=== PATIENT | male | born 1940 | race African-American/Black ===

== ENCOUNTER 2020-12-27 14:51 | Outpatient (CLI) | payer MEDICARE, SELFPAY ==
--- NOTE | ~2020-12-27 | CT_ITS ---
EXAMINATION: CT IAC/mastoids BI wo con DATE: 12/27/2020 15:37 INDICATION: Mixed conductive and sensorineural hearing loss, right ear. TECHNIQUE: Computed tomography (CT) of the temporal bones was performed without intravenous contrast. Automated exposure control and iterative reconstruction technique were employed. The dose-length pro duct was 257.74 mGy-cm. COMPARISON: None FINDINGS: There are likely changes of ocular lens replacement surgeries. RIGHT TEMPORAL BONE: The internal auditory canal, cochlea, vestibule, semicircular canals, vestibular aqueduct, carotid ca nal, jugular bulb, and facial nerve course are normal. There are changes of mastoidectomy. The ossicl es are absent. Soft tissue lines the tympanic cavity and postmastoidectomy space. LEFT TEMPORAL BONE: The internal auditory canal, cochlea, vestibule, semicircular canals, vestibular aqueduct, carotid ca nal, jugular bulb, facial nerve course, ossicles, tympanic membrane, Prussak space, scutum, mastoid a ir cells, and external auditory canal are normal. IMPRESSION: 1. Changes of right-sided mastoidectomy with absent ossicles and soft tissue lining the tympanic cavi ty and postmastoidectomy space. 2. Normal left temporal bone. Reviewed, dictated and finalized at location A. IMPRESSION: 1. Changes of right-sided mastoidectomy with absent ossicles and soft tissue li hernandez the tympanic cavity and postmastoidectomy space. 2. Normal left temporal bone.
== END 2020-12-27 14:52 | disposition home or self-care (01) ==
LOC: ANHIMG 14:56
PROVIDERS: PCP Internal Medicine; Visit Provider Otolaryngology
DX: H91.90 Unspecified hearing loss, unspecified ear (principal)
CPT/HCPCS: 70480

== ENCOUNTER 2022-10-29 10:33 | Outpatient (CLI) | payer MEDICARE, SELFPAY ==
[2022-10-29 14:09] LABS: LDL Cholesterol Direct 96 mg/dL
[2022-10-29 14:42] LABS: Alanine Aminotransferase 17 U/L (6-50); Albumin Level 3.8 g/dL (3.5-5.1); Alkaline Phosphatase 67 U/L (38-126); Anion Gap 1 mmol/L (8-16); Aspartate Amino Transferase 36 U/L (17-59); Blood Urea Nitrogen 22 mg/dL (9-20); Calcium 9.3 mg/dL (8.4-10.2); Carbon Dioxide 28 mmol/L (22-30); Chloride 107 mmol/L (98-107); Cholesterol 189 mg/dL (0-200); Estimated Glomerular Filt Rate 54; Glucose 89 mg/dL (65-110); HDL Direct 44 mg/dL; Potassium 4.2 mmol/L (3.4-5.0); Sodium 136 mmol/L (137-145); Triglycerides 99 mg/dL (<150)
[2022-10-29 17:07] LABS: Hemoglobin A1C 5.5 % (<5.7)
== END 2022-10-29 10:34 | disposition home or self-care (01) ==
LOC: ANHGOSHLAB 10:35
PROVIDERS: PCP Family Medicine; Visit Provider Family Medicine
DX: E78.5 Hyperlipidemia, unspecified (principal); Z13.228 Encounter for screening for other metabolic disorders; R73.9 Hyperglycemia, unspecified
CPT/HCPCS: 36415; 80053; 80061; 83036

== ENCOUNTER 2022-12-18 14:10 | Emergency (ER) | payer MEDICARE, SELFPAY ==
[2022-12-18 14:32] VITALS: BP 169/66; PULSE 63; RESP 16; TEMP 36.4; O2SAT 100
--- NOTE | 2022-12-18 15:14 | ED.GENADULT ---
HPI - General Adult General Chief complaint: Unspecified Stated complaint: Hiccups Time Seen by Provider: 12/18/22 15:14 Source: patient, RN notes reviewed and old records reviewed Mode of arrival: ambulatory Limitations: no limitations History of Present Illness HPI narrative: 82year old male accompanied by his son with complaints of 3 week duration or hiccups.Patient reports that he has had hiccups in the past which have lasted a week or two and then have resolved. He does admit to some sinus congestion and drainage and has been taking some Claritin, he tried Mucinex but it dried him out too much. Patient denies any pain to his chest is able to eat and drink without difficulty. He states that he has some congestion in his throat and tries to cough it up and then he will hiccup and it breaks his cough. MD complaint: persistent hiccups Onset (ago): week(s) (3) Quality: constant Treatments prior to arrival: other (Claritin) Related Data Home Medications Medication Instructions Recorded Confirmed cyanocobalamin (vitamin B-12) 5,000 mcg sublingual DAILY 10/16/21 12/18/22 5,000 mcg sublingual tablet (Vitamin B-12) Allergies Allergy/AdvReac Type Severity Reaction Status Date / Time No Known Allergies Allergy Verified 12/18/22 14:31 Review of Systems Review of Systems: CONSTITUTIONAL: Denies fever, chills, or sweats. EYES: Denies visual changes, redness, or discharge. ENT: Denies rhinorrhea, congestion, sore throat, or otalgia. CARDIOVASCULAR: Denies chest pain, palpitations, or edema. RESPIRATORY: Denies cough or dyspnea. GASTROINTESTINAL: Denies abdominal pain, nausea, vomiting, or diarrhea. GENITOURINARY: Denies dysuria or hematuria. SKIN: Denies rash or itching. MUSCULOSKELETAL: Denies back pain, joint pain, or myalgia. NEUROLOGIC: Denies headache, numbness, or weakness. PSYCHIATRIC: Denies anxiety or depression. 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, stage 2 (mild) Eczema Excessive ear wax Other and unspecified hyperlipidemia Family History Family History Father Family history of malignant neoplasm, Onset Age: 70 Patient's father is Mother Family history of dementia Social History Social History Social History: Caffeine-soda occasionally Smoking status: Never smoker Alcohol intake: former Substance use: never Substance use type: does not use Lack of Transportation: No Lack of Food: Never True Current Housing: I Have Housing Concerned About Future Housing: No Difficulty Paying Gas/Electric Bills: No Difficulty Paying for Meds: No Currently Unemployed: No Difficulty w/ Childcare or Family Care: No Comments At time of signature, agree with nursing past medical, surgical, social and family history. There is no relevant family history pertinent to the presenting complaint Exam Narrative: GENERAL: Well-appearing, well-nourished, and in no acute distress. HEAD: Normocephalic, atraumatic. EYES: PERRLA and EOMI. ENT: Nares clear, clear rhinorrhea no epistaxis. Mucous membranes moist.TM's normal throat pink some post nasal draiange. NECK: Supple.no lymphadenopathy CHEST: Clear to auscultation. No respiratory distress.SAO2 100% on room air HEART: Regular rate and rhythm. No murmur heard. Normal peripheral pulses. ABDOMEN: Soft, nontender, nondistended, normal active bowel sounds. hiccups, denies any difficulty swallowing EXTREMITIES: Normal range of motion. No edema. SKIN: Warm, dry, no rash. NEURO: No focal deficits. Alert and oriented x3. Course Course Emergency Course: Patient is aware of diagnosis, understands and agrees to treatment plan.? Anticipatory kirti
== END 2022-12-18 15:44 | disposition home or self-care (01) ==
PROVIDERS: Emergency Provider Registered Nurse; PCP Family Medicine
DX: R06.6 Hiccough (principal); M19.031 Primary osteoarthritis, right wrist; E78.5 Hyperlipidemia, unspecified; I12.9 Hypertensive chronic kidney disease with stage 1 through stage 4 chronic kidney disease, or unspecified chronic kidney disease; N18.2 Chronic kidney disease, stage 2 (mild)
CPT/HCPCS: 99213; G0463

== ENCOUNTER 2023-02-25 12:01 | Emergency (ER) | payer MEDICARE, SELFPAY ==
[2023-02-25 12:16] VITALS: BP 132/85; PULSE 74; RESP 16; TEMP 37.8; O2SAT 99
--- NOTE | 2023-02-25 12:29 | ED.GENADULT ---
HPI - General Adult General Chief complaint: Unspecified Stated complaint: Hiccups Time Seen by Provider: 02/25/23 12:05 Source: patient Mode of arrival: ambulatory Limitations: no limitations History of Present Illness HPI narrative: Patient is an 82-year-old male who presents with hiccups since Saturday. Patient has similar episode in November, where hiccups lasted 3 weeks. Patient denies any interference with swallowing or breathing. Patient states he has been eating and drinking normally. Does report mild burning sensation in stomach that goes into throat when he lays down. Patient does have primary care provider but has not been seen for this complaint. Related Data Home Medications Medication Instructions Recorded Confirmed cyanocobalamin (vitamin B-12) 5,000 mcg sublingual DAILY 10/16/21 02/25/23 5,000 mcg sublingual tablet (Vitamin B-12) Allergies Allergy/AdvReac Type Severity Reaction Status Date / Time No Known Allergies Allergy Verified 02/25/23 12:25 Review of Systems Review of Systems: All systems reviewed & are unremarkable except as noted in HPI and below Constitutional: Constitutional: Denies body ache(s), Denies chills, Denies fatigue, Denies fever(s), Denies headache(s), Denies malaise and Denies weakness Eyes: Eyes: Denies blurry vision, Denies irritation and Denies loss of vision ENT: Denies otalgia, Denies headache(s), Denies nasal discharge, Denies sinus pain and Denies sore throat Cardiovascular: Cardiovascular: Denies chest pain, Denies irregular heart rhythm and Denies dyspnea Respiratory: Respiratory: Denies dyspnea Gastrointestinal: Gastrointestinal: Denies abdominal pain, Denies melena, Denies hematochezia, Reports heartburn, Denies diarrhea, Denies nausea, Denies vomiting and Reports other (Hiccups) Musculoskeletal: Musculoskeletal: Denies back pain, Denies myalgias and Denies arthralgias Integumentary/Breasts: Skin/Breast: Denies pruritus and Denies rash Neurologic: Denies headache(s), Denies loss of vision and Denies weakness Psychiatric: Psychiatric: Reports no additional psychiatric complaints Endocrine: Endocrine: Denies fatigue PMFSH Past Medical History Medical History 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, stage 2 (mild) Eczema Excessive ear wax Other and unspecified hyperlipidemia Family History Family History Father Family history of malignant neoplasm, Onset Age: 70 Patient's father is Mother Family history of dementia Social History Social History Social History: Caffeine-soda occasionally Smoking status: Never smoker Alcohol intake: current Alcohol use details: 1-2 times per year Substance use: never Substance use type: does not use Lack of Transportation: No Lack of Food: Never True Current Housing: I Have Housing Concerned About Future Housing: No Difficulty Paying Gas/Electric Bills: No Difficulty Paying for Meds: No Currently Unemployed: No Education: High School Diploma/GED Difficulty w/ Childcare or Family Care: No Comments At time of signature, agree with nursing past medical, surgical, social and family history. There is no relevant family history pertinent to the presenting complaint. Exam Const: General: cooperative, healthy appearing, comfortable, no acute distress and well nourished Nutritional Appearance: well nourished Orientation/consciousness: patient oriented x3 Limitations: no limitations HENMT: Head: normal to inspection, normocephalic and atraumatic Ears: hearing grossly normal bilaterally and external ears normal Face/Nose/Sinus: Normal external nose present, normal facial exam and face symmetric Face and sinus: normal facial exam and face symmetric Mouth: Yes lip normal Eyes: General: ap
== END 2023-02-25 12:41 | disposition home or self-care (01) ==
PROVIDERS: Emergency Provider Nurse Practitioner Family; PCP Family Medicine
DX: R06.6 Hiccough (principal); M19.031 Primary osteoarthritis, right wrist; E78.5 Hyperlipidemia, unspecified; I12.9 Hypertensive chronic kidney disease with stage 1 through stage 4 chronic kidney disease, or unspecified chronic kidney disease; N18.2 Chronic kidney disease, stage 2 (mild)
CPT/HCPCS: 99213; G0463

== ENCOUNTER 2023-02-27 16:16 | Outpatient (CLI) | payer MEDICARE, SELFPAY ==
--- NOTE | ~2023-02-27 | XR_ITS ---
Clinical Indication: Weight loss PA and lateral views of the chest: Comparison: None Findings: The lungs appear clear, without evidence of focal consolidation or pleural effusion. Cardi omediastinal silhouette is within normal limits. Bones and soft tissues are unremarkable. Impression: No significant abnormality seen. There is overpenetration of the left upper lobe region which limits evaluation. Reviewed, dictated and finalized at location M. RITY PROGRAM MANAGER Impression: No significant abnormality seen. There is overpenetration of the left upper lob e region which limits evaluation.
--- NOTE | ~2023-02-27 | XR_ITS ---
XR abdomen/kub 1V 02/27/2023 16:44 INDICATION: Abnormal weight loss TECHNIQUE: KUB COMPARISON: No prior studies for comparison. FINDINGS: Bowel gas pattern is normal. There is no evidence of free air, mass, organomegaly, ascites or obstruction. No abnormal calculi are seen. The bones appear intact. Mild dextrocurvature of the lumbar spine with moderate spondylosis. IMPRESSION: 1: No acute abdominal abnormality identified. Reviewed, dictated and finalized at location L. TEGY LEAD
== END 2023-02-27 16:17 ==
LOC: GOSHIMG 16:19
PROVIDERS: PCP Nurse Practitioner; Visit Provider Nurse Practitioner
DX: R63.4 Abnormal weight loss (principal)
CPT/HCPCS: 71046; 74018

== ENCOUNTER 2023-03-19 01:22 | Day surgery (SDC) | payer MEDICARE, SELFPAY ==
[2023-03-14 09:32] VITALS: BMI 25.9
--- NOTE | 2023-03-15 09:31 | SUR.PREOP ---
Patient called regarding upcoming procedure. Message left on patient's voicemail regarding appointment times.
[2023-03-19 12:54] VITALS: BP 140/88; PULSE 52; RESP 18; TEMP 36.6; O2SAT 99; BMI 25.0
--- NOTE | 2023-03-19 13:30 | WPDHPUPDATE1 ---
History and Physical Update Update Date/Time: 03/19/23 13:30 History and Physical has been reviewed, including an updated exam of the patient. There are NO changes in the patient's condition. Risks, benefits, and alternatives have been discussed and questions answered. Patient agrees to proceed with procedure.
[2023-03-19] MEDS: LACTATED RINGERS 1,000 ML 150 ML IV CONT (13:31)
--- NOTE | 2023-03-19 13:34 | P.PNAN_ITS ---
Anes - Initial Pre Proc Eval Procedure: Operation Date: 03/19/23 14:30 Proposed Procedures p Esophagogastroduodenoscopy - Jose Miguel Arnold MD Date/Time: 03/19/23 13:34 Surgeon: Jose Miguel Arnold MD Pre Op Diagnosis: Abnormal weight loss,hiccough Patient Data Age: 82 Gender: M Height: 1.8 m Weight: 81.6 kg Last Vital Signs Temp 97.9 F 03/19/23 12:54 Pulse 52 L 03/19/23 12:54 Resp 18 03/19/23 12:54 BP 140/88 03/19/23 12:54 Pulse Ox 99 03/19/23 12:54 O2 Del Method Room Air 03/19/23 12:54 Allergies Allergy/AdvReac Type Severity Reaction Status Date / Time No Known Allergies Allergy Verified 03/13/23 11:05 Home Medications Medication Instructions Recorded Confirmed Type cyanocobalamin (vitamin B-12) 5,000 mcg sublingual DAILY 10/16/21 03/14/23 History 5,000 mcg sublingual tablet (Vitamin B-12) loratadine 10 mg tablet 10 mg PO DAILY #90 tabs 11/29/22 03/14/23 Rx omeprazole 20 mg capsule,delayed 20 mg PO DAILY 2 weeks #14 caps 02/25/23 03/14/23 Rx release lorazepam 0.5 mg tablet 0.5 mg PO BID PRN hiccups #14 tabs 02/28/23 03/14/23 Rx Patient hx anesthesia problems: none Family hx anesthesia problems: none Results Review: All pre-operative results and documents have been reviewed as part of the pre- operative evaluation. 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, stage 2 (mild) Eczema Excessive ear wax Other and unspecified hyperlipidemia Family History Family History Father Family history of malignant neoplasm, Onset Age: 70 Patient's father is Mother Family history of dementia Social History Social History Social History: Caffeine-soda occasionally Smoking status: Former smoker Alcohol intake: current Alcohol use details: 1-2 times per year Substance use: never Substance use type: does not use Lack of Transportation: No Lack of Food: Never True Current Housing: I Have Housing Concerned About Future Housing: No Difficulty Paying Gas/Electric Bills: No Difficulty Paying for Meds: No Currently Unemployed: No Education: High School Diploma/GED Difficulty w/ Childcare or Family Care: No Living arrangements: with family Spiritual care concerns: No Anes - Eval Final PreProcedure Day of Procedure 03/19/23 13:34 Patient weight: normal Heart: regular rate and rhythm Lungs: clear to auscultation Airway: Mallampati scale class II Neurological: alert and oriented Last oral intake: >/= 8 hours ASA classification: III Emergent: no Anesthetic plan: proceed Anesthesia type and monitoring: general GIVS and standard monitoring Results Review: All pre-operative results and documents have been reviewed as part of the pre- operative evaluation. Informed Consent: The patient's anesthetic plan and its attendant risks and benefits were discussed with the patient/family/POA. Questions were solicited and answers provided to the satisfaction of the patient/family/POA.
[2023-03-19 13:51] VITALS: BP 105/65; PULSE 64; RESP 20; O2SAT 98
[2023-03-19 14:01] VITALS: BP 127/80; PULSE 64; RESP 20; O2SAT 97
[2023-03-19 14:11] VITALS: BP 139/83; PULSE 61; RESP 19; O2SAT 99
== END 2023-03-19 14:28 | disposition home or self-care (01) ==
PROVIDERS: PCP Family Medicine; Visit Provider Internal Medicine Gastroenterology
PROC: 0DJ08ZZ Inspection of Upper Intestinal Tract, Via Natural or Artificial Opening Endoscopic (ICD-10-PCS; CPT 43235; principal; 2023-03-19 14:30)
DX: K21.00 Gastro-esophageal reflux disease with esophagitis, without bleeding (principal); K29.00 Acute gastritis without bleeding; K29.50 Unspecified chronic gastritis without bleeding; B96.81 Helicobacter pylori [H. pylori] as the cause of diseases classified elsewhere; K29.80 Duodenitis without bleeding; N18.2 Chronic kidney disease, stage 2 (mild); E78.49 Other hyperlipidemia; Z87.891 Personal history of nicotine dependence; F10.90 Alcohol use, unspecified, uncomplicated
CPT/HCPCS: 43239; 88305; 88342; J2001; J2704; J7120

== ENCOUNTER 2023-03-28 10:20 | Emergency (ER) | payer MEDICARE, SELFPAY ==
--- NOTE | 2023-03-28 10:28 | ED.DENTAL ---
HPI - Dental/Oral General Chief complaint: Nausea/Vomiting/Diarrhea Stated complaint: HICCUPS Time Seen by Provider: 03/28/23 10:45 Source: patient Mode of arrival: ambulatory Limitations: no limitations History of Present Illness HPI Narrative: Filipe is an 82-year-old male patient presenting to the clinic today with complaints of intractable hiccups. He reports he started having hiccups around 240 this morning. Hiccups have not yet gone away. Has been seen in the clinic twice for this and was referred to GI. Patient salt GI specialist and had EGD done and was diagnosed with reflux esophagitis. Chest x-ray and KUB are within normal limits. Prescriptions for amoxicillin, clarithromycin, Protonix, and loratadine was given to the patient. Patient also has prescription for citalopram. Prescription for lorazepam was listed in PCP provider notes/medication list however patient does not recall if he has taken this medication. Another note states that patient was given Xanax and this resolved his symptoms but this medication is not on his list. Patient is having episodes of hiccups at the time of visit. Related Data Home Medications Medication Instructions Recorded Confirmed cyanocobalamin (vitamin B-12) 5,000 mcg sublingual DAILY 10/16/21 03/28/23 5,000 mcg sublingual tablet (Vitamin B-12) citalopram 10 mg tablet 10 mg PO DAILY 03/28/23 03/28/23 Allergies Allergy/AdvReac Type Severity Reaction Status Date / Time No Known Allergies Allergy Verified 03/28/23 10:31 Review of Systems Review of Systems: Pertinent positives per HPI. Patient denies any fever, chills, rash, headache, visual changes, dizziness, cough, shortness of breath, chest pain, palpitations, nausea, vomiting, diarrhea, constipation, abdominal pain, or any urinary issues. 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 pylori infection Other and unspecified hyperlipidemia Family History Family History Father Family history of malignant neoplasm, Onset Age: 70 Patient's father is Mother Family history of dementia Social History Social History Social History: Caffeine-soda occasionally Smoking status: Former smoker Alcohol intake: current Alcohol use details: 1-2 times per year Substance use: never Substance use type: does not use Lack of Transportation: No Lack of Food: Never True Current Housing: I Have Housing Concerned About Future Housing: No Difficulty Paying Gas/Electric Bills: No Difficulty Paying for Meds: No Currently Unemployed: No Education: High School Diploma/GED Difficulty w/ Childcare or Family Care: No Living arrangements: with family Spiritual care concerns: No Comments At the time of my signature, I reviewed and agree with the nursing past medical, surgical, social, and family history. There is no relevant family history pertinent to the patient complaint. Exam Narrative: General: Well-developed, well nourished, in no apparent distress Head: Normocephalic, atraumatic Eyes: Pupils equally round and reactive to light bilaterally, EOM intact, sclera and conjunctive clear, no discharge, lids normal Ears: TMs intact and clear, ear canals clear, no drainage, grossly hearing normal. Nose: Nares patent, no discharge, no inflammation, no sinus tenderness. Mouth: Oral pharynx without lesions or masses, good dentition, MMM. Neck: Supple, trachea midline, no enlargement of anterior or posterior cervical nodes, no thyroid masses or goiter palpable. Cardio: Regular rate and rhythm, s1 and s2 normal, no murmur appreciated. Resp: Clear to auscultation bilaterally, no rhonchi, rales, wheezing or rubs C
[2023-03-28 10:34] VITALS: BP 128/88; PULSE 70; RESP 16; TEMP 36.9; O2SAT 100
== END 2023-03-28 11:07 | disposition home or self-care (01) ==
PROVIDERS: Emergency Provider Nurse Practitioner Family; PCP Family Medicine
DX: R06.6 Hiccough (principal); Z87.891 Personal history of nicotine dependence; N18.2 Chronic kidney disease, stage 2 (mild); M19.031 Primary osteoarthritis, right wrist
CPT/HCPCS: 99213; G0463

== ENCOUNTER 2023-07-11 10:36 | Outpatient (CLI) | payer MEDICARE, SELFPAY ==
[2023-07-11 14:07] LABS: Cholesterol 178 mg/dL (0-200); HDL Direct 52 mg/dL; Triglycerides 99 mg/dL (<150)
[2023-07-11 14:19] LABS: LDL Cholesterol Direct 94 mg/dL
[2023-07-12 13:50] LABS: Alanine Aminotransferase 14 U/L (6-50); Albumin Level 4.2 g/dL (3.5-5.1); Alkaline Phosphatase 76 U/L (38-126); Anion Gap 4 mmol/L (4-12); Aspartate Amino Transferase 32 U/L (17-59); Blood Urea Nitrogen 23 mg/dL (9-20); Calcium 9.9 mg/dL (8.4-10.2); Carbon Dioxide 28 mmol/L (22-30); Chloride 110 mmol/L (98-107); Estimated Glomerular Filt Rate 59; Glucose 74 mg/dL (65-110); Potassium 4.4 mmol/L (3.4-5.0); Sodium 142 mmol/L (137-145)
== END 2023-07-11 10:37 | disposition home or self-care (01) ==
PROVIDERS: PCP Family Medicine; Visit Provider Family Medicine
DX: E78.5 Hyperlipidemia, unspecified (principal); Z13.220 Encounter for screening for lipoid disorders
CPT/HCPCS: 36415; 80053; 80061

== ENCOUNTER → 2024-07-14 12:13 | Outpatient (CLI) | payer MEDICARE, SELFPAY ==
--- OUTSIDE RECORDS SUMMARY | 2024-07-14 13:58 | XMS_ITS | Clinical Summary ---
Author Organization [facility] Address [address] [place] [address] Care Team Providers Care Process Plant Operator Name Role Phone Demetrius Kimbrough DO Primary Care Provider [phone] Source Comments [facility],non-owned Affiliates and Associated Physician Practices is amultiple site organization consisting of ambulatory clinics and hospital sitesin [place], [place], [place] and [place]. This disclosure is being madepursuant to the Care Everywhere program and may not contain all information available regarding this patient. Last updated 17.[facility] [employer] Social History Tobacco Use Types Packs/Day Years Used Date Smoking Tobacco: Former Cigarettes Smokeless Tobacco: Never Tobacco Cessation:Counseling Given: Not Answered PHQ-2 Answer Date Recorded PHQ2 TOTAL SCORE 2 05/16/2022 Sex and Gender Information Value Date Recorded Sex Assigned at Not on file Legal Sex Male 12:13 PM CDT Gender Identity Not on file Sexual Orientation Not on file Plan of Treatment Health Maintenance Due Date Last Done Comments DTAP/TDAP/TD VACCINES (1 - Tdap) 1960 PNEUMOCOCCAL VACCINE 50+ (1 of 1 - PCV) 07/29/1991 ZOSTER VACCINE (1 of 2) 07/29/1991 Respiratory Syncytial Virus (RSV) Vaccine Pt: or over 60 yrs (1 - 1-dose 75+ series) 2016 COVID-19 VACCINE ( - 2023-2 5 season) 2023 DEPRESSION SCREENING 03/25/2024 04/30/2022 MEDICARE AWV CALENDAR YEAR 2024 INFLUENZA VACCINE (Season Ended) 2024 HEPATITIS B VACCINE Aged Out No longe r eligible based on patient's age to complete this topic HIB VACCINE Aged Out No longer eligi ble based on patient's age to complete this topic HPV VACCINE Aged Out No longer eligi ble based on patient's age to complete this topic MENINGOCOCCAL (Group B) VACC INE SHARED DECISION-MAKING Aged Out No longer eligibl e based on patient's age to complete this topic MENINGOCOCCAL GROUPS A/C/Y/W VACCINE Aged Out No longer eligible b ased on patient's age to complete this topic Insurance [facility] MANAGED MEDICARE ADV SELF PAY NO INSURANCE Member Subscriber Plan / Payer (Ef fective for All Dates) Name:Filipe Garcia Member ID:Not on file Relation to Subscriber:Not on file Name:FILIPE GARCIA Subscriber ID:Not on file (Home) Address: [address] [place] [address] [place] [address] Payer ID:Not on file Group ID:Not on file Type:Self Pay Address: [facility] MANAGED MEDICARE ADV SELF PAY NO INSURANCE Member Subscriber Plan / Payer (Ef fective for All Dates) Name:Filipe Garcia Member ID:Not on file Relation to Subscriber:Not on file Name:FILIPE GARCIA Subscriber ID:Not on file (Home) Address: [address] [place] [address] Payer ID:Not on file Group ID:Not on file Type:Self Pay Address: [facility] MANAGED MEDICARE ADV Care Teams Process Plant Operator Relationship Specialty Start Date End Date Demetrius Kimbrough DO [address] [place] [address] PCP - General 11/02/21
== END ==
PROVIDERS: PCP Nurse Practitioner Family; Visit Provider Nurse Practitioner Family
DX: M79.672 Pain in left foot (principal)
CPT/HCPCS: 73630